=== PATIENT | female | born 1950 | race Caucasian/White ===

== ENCOUNTER 2021-04-11 14:58 | Emergency (ER) | payer MEDICARE, OTHER | END 2021-04-11 16:30 | disposition left against medical advice (07) | LOC: ER1 14:58 | DX: Z53.21 Procedure and treatment not carried out due to patient leaving prior to being seen by health care provider (principal) ==

== ENCOUNTER → 2021-12-19 | Outpatient (CLI) | payer MEDICARE, OTHER | LOC: MAMO 12-14 09:30 | DX: Z12.31 Encounter for screening mammogram for malignant neoplasm of breast (principal) | CPT/HCPCS: 77063; 77067 ==

== ENCOUNTER → 2022-04-13 | Outpatient (CLI) | payer MEDICARE | LOC: US 11:47 | DX: M79.661 Pain in right lower leg (principal) | CPT/HCPCS: 93971 ==